=== PATIENT | male | born 2005 | race Hispanic/Latino ===

== ENCOUNTER 2024-02-15 05:49 | Emergency (ER) | payer OTHER, SELFPAY ==
[2024-02-15 05:57] VITALS: BP 147/92
[2024-02-15 06:40] LABS: COVID-19 Antigen Negative (Negative)
--- NOTE | 2024-02-15 06:50 | ED.GENMED ---
History of Present Illness
General
Chief Complaint: Cold/Flu/URI Symptoms
Source: patient
Exam Limitations: none
Time Seen by Provider: 02/15/24 06:41
Travel History
Have you had any contact with someone who has COVID-19?: No
Do you have any symptoms of coronavirus? Fever > 100 degrees, chills, cough, shortness of breath, sore throat, loss of taste or smell, muscle aches, or headache?: Yes
Symptoms:: sore, cough, SOB
History of Present Illness
History of Present Illness:
See MDM
Past History
Past History
ED Past Medical History: Asthma
ED Past Surgical History: None
Social History
Tobacco: Non-smoker
Alcohol: None
Phy Exam
Physical Exam
Physical Exam:
See MDM
Course
Orders/Labs/Results
Orders:
Orders
02/15/24 06:12
COVID-19 Antigen Urgent
Source: Nasal Swab
Influenza A+B Rapid Molecular Urgent
RENAE Source: Nasal Swab
Specimen Description:
02/15/24 06:48
Dexamethasone Pf [Decadron] 10 mg PO NOW STA
Ipratropium/Albuterol Sulfate [Duoneb] 3 ml INH R NOW STA
02/15/24 06:50
CR Chest - 2 Views Urgent
Comment:
Reason For Exam: SOB, cough
Vital Signs
Initial and Last Documented VS:
Initial Vital Signs
Temp Pulse Resp BP Pulse Ox
97.6 F 76 20 147/92 98
02/15/24 05:57 02/15/24 05:57 02/15/24 05:57 02/15/24 05:57 02/15/24 05:57
Last Documented Vital Signs
Temp Pulse Resp BP Pulse Ox
97.6 F 74 18 138/84 98
02/15/24 05:57 02/15/24 07:04 02/15/24 07:04 02/15/24 07:04 02/15/24 07:04
MDM/Problems Addressed
Differential Diagnosis Includes:
HPI and MDM Narrative:
18-year-old male presenting with shortness of breath and cough. This is progressed over the past several days. Patient is now noticing wheezing when he walks. He does have a history of well-controlled asthma but does admit that he is very
noncompliant with his Advair. Patient is worried that he could have pneumonia again.
On exam, there is a subtle expiratory wheeze. He is well-appearing nontoxic. Will start Decadron and given DuoNeb. Will obtain chest x-ray
Physical exam
General: Well appearing and non-toxic
HEENT: protecting airway
Neck: appears supple
CV: No evidence of cyanosis
Resp: No accessory muscle use. Faint expiratory wheeze
Abd: Non-distended
Extremities: No deformities
Neuro: alert
Psych: Normal affect
Skin: Intact
Problems Addressed including Acute and Chronic Conditions affecting care:
1. Asthma exacerbation
Acuity: acute
Prognosis: stable
Details: Will give Decadron and DuoNeb. Will obtain chest x-ray.
Updates
X-ray negative for infection. Patient feeling better on reassessment. Discussed return precautions
Differential Diagnosis (but not limited to): Pneumonia, viral syndrome, bronchitis
Testing considered: Blood work
Drug therapy (if applicable): OTC meds, please see d/c instruction regarding Rx drugs
Amount and/or Complexity of Data Reviewed
Clinical info obtained from: Patient
External data reviewed: N/A
Labs I independently reviewed (but not limited to): COVID-negative
Radiology: X-ray independently reviewed: Chest x-ray clear
Pulse Ox: not hypoxic
EKG independently reviewed: N/A
Collector: N/A
Critical Care: N/A
Risk of Complication:
Social Determinants of health: Good social support
Discussed with other providers: N/A
Escalation of Care includes Admit/Obs: After being observed in the Emergency Department, pt stable for discharge.
Occasional wrong word or 'sound a like' substitutions may have occurred due to the inherent limitations of voice recognition software. Read the chart carefully and recognize, using context, where substitutions have occurred.
*Critical Care Note
Total Time (30-74mins, 75-104mins- exclusive of procedures): Not Applicable
ED Attending Note
-
Portions of this chart may have been created with voice recognition software.� Occasional wrong word or��sound alike� substitutions may have occurred due to the inherent limitations of voice recognition software.
Discharge Plan
Departure
Patient Disposition: Home (Routine Discharge)
Date of Disposition: 02/15/24
Time of Disposition: 08:35
Patient with high blood pressure during this ER visit?: No
Discharge Problem:
Asthma exacerbation
Instructions: Asthma, Adult ED
Prescriptions:
New
prednisone 20 mg tablet
40 mg PO DAILY Qty: 10 0RF
No Action
famotidine 20 mg Tablet
20 mg PO DAILY
pantoprazole 40 mg Tablet,Delayed Release (Dr/Ec)
40 mg PO DAILY
Singulair
10 mg PO DAILY
albuterol sulfate
2 inh inhalation Q4H PRN (Reason: SOB)
Referrals:
NONE,* [Family Provider] -
Stand Alone Forms: Back to School
Activity Restrictions/Additional Instructions:
Please return for any worsening symptoms.
You may return at any time if you have further concerns.
Please follow up with your doctor at the first available appointment, preferably this week.
Please take your Advair as prescribed.
Thank you for choosing [facility].
Interventions
Interventions:
*Risk Screen - Suicide Last Done: 02/15/24 05:57
*General Assessment Last Done: 02/15/24 05:57
*Neglect/Abuse Screening Last Done: 02/15/24 05:57
ED- Fall Risk Assessment Last Done: 02/15/24 05:57
*ED COVID-19 Vaccine History Last Done: 02/15/24 05:57
ED- Pulmonary Assessment Last Done: 02/15/24 07:01
Discharge Date and Time
Print Language: OCCITAN
[2024-02-15] MEDS: DUONEB 3 ML INH (07:00)
[2024-02-15] MEDS: DECADRON 10 MG PO (07:00)
[2024-02-15 07:01] VITALS: BMI 28.5
[2024-02-15 07:04] VITALS: BP 138/84
--- NOTE | 2024-02-15 08:49 | EDRN ---
Reviewed discharge instructions with patient. Verbalized understanding. Ambulated with steady gait to the lobby.
[2024-02-15 08:50] VITALS: BP 144/90
== END 2024-02-15 08:51 | disposition home or self-care (01) ==
LOC: EMR 05:49
PROVIDERS: EMERGENCY PHYSICIAN Student in an Organized Health Care Education/Training Program
DX: J45.901 Unspecified asthma with (acute) exacerbation (principal)
CPT/HCPCS: 99283; 94640; 71046; 87502; 87811